=== PATIENT | male | born 1995 | race Asian ===

== ENCOUNTER 2022-10-04 18:50 | Emergency (ER) | payer OTHER, SELFPAY ==
--- NOTE | ~2022-10-04 | XR_ITS ---
EXAMINATION: XR CHEST CLINICAL INFORMATION: Chest pain COMPARISON: None available. TECHNIQUE: Frontal view of the chest was obtained. FINDINGS: No significant abnormality is noted involving the heart, lungs, mediastinum, bony thorax or soft tissues. XR/XR chest 1V IMPRESSION: Unremarkable chest examination.
--- NOTE | 2022-10-04 18:59 | ECG_ITS ---
Test Reason : CHEST PAIN Blood Pressure : / mmHG Vent. Rate : 065 BPM Atrial Rate : 065 BPM P-R Int : 136 ms QRS Dur : 092 ms QT Int : 370 ms P-R-T Axes : 020 051 036 degrees QTc Int : 384 ms Normal sinus rhythm Normal ECG No previous ECGs available Referred By: Nitesh Zamora Electronically Signed By:Darwin Canales
[2022-10-04 19:22] LABS: MANUAL DIFF FLAG NO
[2022-10-04 19:23] LABS: Basophils Absolute Auto 0.1 X10*3/uL (0.0-0.2); Basophils Percent Auto 0.8 % (0-2); Eosinophils Percent Auto 0.5 % (0-4); Hematocrit 48.3 % (42.0-52.0); Hemoglobin 16.6 g/dl (14.0-18.0); Imm Gran Abs Auto 0.03 X10*3/uL (0.00-0.03); Imm Gran Pct Auto 0.4 % (0.0-0.4); Lymphocytes Absolute Auto 1.8 X10*3/uL (1.2-4.9); Lymphocytes Percent Auto 24.7 % (20-40); Mean Corpuscular HGB Conc 34.4 g/dl (31.0-36.0); Mean Corpuscular Hemoglobin 27.5 pg (27.0-33.0); Mean Corpuscular Volume 80.1 fL (80.0-98.0); Mean Platelet Volume 8.9 fL (9.4-12.4); Monocytes Absolute Auto 0.5 X10*3/uL (0.1-1.2); Monocytes Percent Auto 6.4 % (2-11); Neutrophils Absolute Auto 4.9 x10*3/uL (2.0-8.3); Neutrophils Percent Auto 67.2 % (45-73); Platelet Count 282 X10*3/uL (160-400); Red Blood Count 6.03 X10*6/uL (4.60-5.80); Red Cell Distribution Width 11.9 % (11.0-16.0); White Blood Count 7.3 X10*3/uL (4.8-10.8)
[2022-10-04 19:34] VITALS: BP 153/91; PULSE 81; RESP 18; TEMP 36.9; O2SAT 99; BMI 22.4
--- NOTE | 2022-10-04 19:35 | ED_ITS ---
HPI - General Adult General Chief complaint: Chest Pain <REESE [place] - Last Filed: 10/04/22 19:38> Stated complaint: Chest Pain sent by [facility] <REESE [place] - Last Filed: 10/04/22 19:38> Time Seen by Provider: 10/04/22 23:16 <REESE [place] - Last Filed: 10/04/22 19:38> Source: patient, RN notes reviewed and old records reviewed <Dale Marcelo - Last Filed: 10/04/22 23:36> Mode of arrival: ambulatory <Dale Marcelo - Last Filed: 10/04/22 23:36> Limitations: no limitations <Dale Marcelo - Last Filed: 10/04/22 23:36> History of Present Illness HPI narrative: 27-year-old male who denies any past medical history presents for evaluation of multiple complaints. He complains of chest pain, worse with inspiration and raising his left arm. He reports he has headache when he sneezes He denies any fevers but endorses chills He denies any abdominal pain but states that after he eats he feels nauseous for a few seconds before it goes away He has not had any vomiting The patient denies any sick contacts or recent travel. He went to urgent care prior to arrival and was referred to the ED for further evaluation and management He reports his symptoms started 4 days ago The patient endorses increased stress related to work over the last few days <Dale Marcelo - Last Filed: 10/04/22 23:36> Related Data Allergies/adverse reactions: Allergies Allergy/AdvReac Type Severity Reaction Status Date / Time No Known Allergies Allergy Verified 10/04/22 19:38 <REESE [place] - Last Filed: 10/04/22 19:38> Review of Systems Constitutional: Constitutional: Reports as per HPI, Reports body ache(s), Reports chills, Denies fever(s), Reports headache(s) and Reports malaise <Dale Marcelo - Last Filed: 10/04/22 23:36> Eyes: Eyes: Denies blurry vision <Dale Marcelo - Last Filed: 10/04/22 23:36> ENT: Reports headache(s) <Dale Najera Last Filed: 10/04/22 23:36> Cardiovascular: Cardiovascular: Reports chest pain and Denies dyspnea <Dale Last Filed: 10/04/22 23:36> Respiratory: Respiratory: Denies cough, Reports pain on inspiration and Denies dyspnea < - Last Filed: 10/04/22 23:36> Gastrointestinal: Gastrointestinal: Denies abdominal pain, Denies constipation, Reports nausea and Denies vomiting < Last Filed: 10/04/22 23:36> Genitourinary: Genitourinary: Denies difficulty urinating and Denies dysuria < Last Filed: 10/04/22 23:36> Neurologic: Reports headache(s) and Denies focal weakness < Last Filed: 10/04/22 23:36> Physical Exam ED Vital Signs: Vital Signs - 24 hr 10/04/22 19:34 Temperature 98.5 F Pulse Rate 81 Respiratory Rate 18 Blood Pressure 153/91 H Pulse Oximetry 99 Oxygen Delivery Method Room Air BMI result Body Mass Index 22.4 <REESE [place] - Last Filed: 10/04/22 19:38> Vital Signs - 24 hr 10/04/22 19:34 Temperature 98.5 F Pulse Rate 81 Respiratory Rate 18 Blood Pressure 153/91 H Pulse Oximetry 99 Oxygen Delivery Method Room Air BMI result Body Mass Index 22.4 <Dale Last Filed: 10/04/22 23:36> Const General: healthy appearing, comfortable, no acute distress, alert and awake <Dale NajeraSummit - Last Filed: 10/04/22 23:36> Nutritional Appearance: well nourished <Dale Last Filed: 10/04/22 23:36> Orientation/consciousness: patient oriented x3 <Dale O Last Filed: 10/04/22 23:36> HENMT Head: Yes normocephalic and Yes atraumatic <Dale OSummit - Last Filed: 10/04/22 23:36> Throat: Yes posterior oropharynx normal < Last Filed: 10/04/22 23:36> Eyes Eyelids: Yes eyelids normal < Last Filed: 10/04/22 23:36> Conjunctivae: conjunctivae normal < Last Filed: 10/04/22 23:36> Sclerae: sclerae normal < Last Filed: 10/04/22 23:36> Corneas: corneas normal < Last Filed: 10/04/22 23:36> Pupils: Equal, round and reactive pupils present < Last Filed: 10/04/22 23:36> EOM: EOMs intact bilaterally < Last Filed: 10/04/22 23:36> Neck Neck: Yes full ROM < Last Filed: 10/04/22 23:36> Resp Effort & Inspection: normal respiratory effort, able to speak in complete sentences, no audible wheezes and not labored < Last Filed: 10/04/22 23:36> Auscultation: clear to auscultation bilaterally < Last Filed: 10/04/22 23:36> Cardio Rate: regular rate < Last Filed: 10/04/22 23:36> Rhythm: regular rhythm < Last Filed: 10/04/22 23:36> GI Inspection: No distended < Last Filed: 10/04/22 23:36> Palpation (GI): Soft to palpation, not firm, nontender, no guarding and not rigid < Last Filed: 10/04/22 23:36> Auscultation: normoactive bowel sounds < Last Filed: 10/04/22 23:36> Skin General skin exam: no rashes or lesions noted and elasticity normal < Last Filed: 10/04/22 23:36> Neuro General: patient oriented x3 < Last Filed: 10/04/22 23:36> Cranial nerves: Yes CN's II-XII intact bilaterally, Yes Equal, round and reactive pupils present and Yes Bilaterally intact EOM present <Dale Davian - Last Filed: 10/04/22 23:36> Cognition (Neuro): normal cognition <Dale Marcelo - Last Filed: 10/04/22 23:36> Extrem Other: Moving all extremities well without any obvious deformities <Dale Marcelo - Last Filed: 10/04/22 23:36> Course Course Course Narrative: This is an RME: Additional HPI, ROS, PE not included below will be deferred to primary provider. 27 year old male presents to the ED from urgent care with nausea and chest pain. Patient reports he had high blood pressure at home yesterday. Denies lightheadedness, fever, chill, weight loss. PE: hypertensive Plan: labs, EKG <REESE [place] - Last Filed: 10/04/22 19:38> Medical Decision Making Medical Decision Making [facility] Narrative: Patient has multiple complaints. Symptoms started 4 days ago and correlates to when he endorses increased stress. He had negative cardiac workup that included labs, troponin, EKG, chest x-ray. He was mildly hypertensive to 153/91. Does not take any antihypertensive medication. He states he has never had blood pressure before. This could be an additional symptom likely related to his increased stress. He has ruled out for ACS he also had negative D-dimer so does not have a PE. Heart score 0 <Dale Marcelo - Last Filed: 10/04/22 23:36> Differential Diagnosis Chest pain ACS Bronchitis PE Anxiety Stress <Dale Marcelo - Last Filed: 10/04/22 23:36> Lab Data [facility] Lab Attestation statement: I reviewed the patient's lab results. <Dale Marcelo - Last Filed: 10/04/22 23:36> Result Diagrams: 10/04/22 19:17 10/04/22 19:17 <REESE [place] - Last Filed: 10/04/22 19:38> Labs: Lab Results 10/04/22 10/04/22 10/04/22 Range/Units 19:17 19:17 19:17 WBC 7.3 (4.8-10.8) X10*3/uL RBC 6.03 H (4.60-5.80) X10*6/uL Hgb 16.6 (14.0-18.0) g/dl Hct 48.3 (42.0-52.0) % MCV 80.1 (80.0-98.0) fL MCH 27.5 (27.0-33.0) pg MCHC 34.4 (31.0-36.0) g/dl RDW 11.9 (11.0-16.0) % Plt Count 282 (160-400) X10*3/uL MPV 8.9 L (9.4-12.4) fL Immature Gran % (Auto) 0.4 (0.0-0.4) % Neut % (Auto) 67.2 (45-73) % Lymph % (Auto) 24.7 (20-40) % Cascade % (Auto) 6.4 (2-11) % Eos % (Auto) 0.5 (0-4) % Baso % (Auto) 0.8 (0-2) % Lymph # (Auto) 1.8 (1.2-4.9) X10*3/uL Cascade # (Auto) 0.5 (0.1-1.2) X10*3/uL Eos # (Auto) 0.0 (0.0-0.4) X10*3/uL Baso # (Auto) 0.1 (0.0-0.2) X10*3/uL Abs Immat Gran (auto) 0.03 (0.00-0.03) X10*3/uL Absolute Neuts (auto) 4.9 (2.0-8.3) x10*3/uL Absolute Nucleated RBC 0.000 (0.0-0.012) X10*3/uL Nucleated RBC % (auto) 0.0 (0.0-0.2) /100WBC D-Dimer High Sensitivty < 150 NG/ML Sodium 142 (135-145) mmol/L Potassium 4.3 (3.3-5.1) mmol/L Chloride 104 (96-108) mmol/L Carbon Dioxide 27 (22-29) mmol/L Anion Gap 15 (12-20) BUN 14 (9-16) mg/dL Creatinine 0.87 (0.5-1.4) mg/dL Estim Creat Clear Calc 107.7 Estimated GFR > 60 Random Glucose 86 (60-115) mg/dL Calcium 9.7 (8.4-10.2) mg/dL Magnesium 2.1 (1.6-2.6) mg/dL Total Bilirubin 0.6 (0.0-1.0) mg/dL AST 28 (5-37) U/L ALT 50 H (0-40) U/L Alkaline Phosphatase 90 (39-117) U/L Troponin I High Sens (<3.5-35.0) ng/L Total Protein 7.7 (6.5-8.0) g/dL Albumin 5.0 (3.5-5.0) g/dL Ethyl Alcohol < 10 mg/dL COVID-19 (FERNANDA) (Negative) COVID-19 Clin Com 10/04/22 10/04/22 Range/Units 19:17 19:17 WBC (4.8-10.8) X10*3/uL RBC (4.60-5.80) X10*6/uL Hgb (14.0-18.0) g/dl Hct (42.0-52.0) % MCV (80.0-98.0) fL MCH (27.0-33.0) pg MCHC (31.0-36.0) g/dl RDW (11.0-16.0) % Plt Count (160-400) X10*3/uL MPV (9.4-12.4) fL Immature Gran % (Auto) (0.0-0.4) % Neut % (Auto) (45-73) % Lymph % (Auto) (20-40) % Cascade % (Auto) (2-11) % Eos % (Auto) (0-4) % Baso % (Auto) (0-2) % Lymph # (Auto) (1.2-4.9) X10*3/uL Cascade # (Auto) (0.1-1.2) X10*3/uL Eos # (Auto) (0.0-0.4) X10*3/uL Baso # (Auto) (0.0-0.2) X10*3/uL Abs Immat Gran (auto) (0.00-0.03) X10*3/uL Absolute Neuts (auto) (2.0-8.3) x10*3/uL Absolute Nucleated RBC (0.0-0.012) X10*3/uL Nucleated RBC % (auto) (0.0-0.2) /100WBC D-Dimer High Sensitivty NG/ML Sodium (135-145) mmol/L Potassium (3.3-5.1) mmol/L Chloride (96-108) mmol/L Carbon Dioxide (22-29) mmol/L Anion Gap (12-20) BUN (9-16) mg/dL Creatinine (0.5-1.4) mg/dL Estim Creat Clear Calc Estimated GFR Random Glucose (60-115) mg/dL Calcium (8.4-10.2) mg/dL Magnesium (1.6-2.6) mg/dL Total Bilirubin (0.0-1.0) mg/dL AST (5-37) U/L ALT (0-40) U/L Alkaline Phosphatase (39-117) U/L Troponin I High Sens < 2.7 (<3.5-35.0) ng/L Total Protein (6.5-8.0) g/dL Albumin (3.5-5.0) g/dL Ethyl Alcohol mg/dL COVID-19 (FERNANDA) Negative (Negative) COVID-19 Clin Com See Note <REESE [place] - Last Filed: 10/04/22 19:38> Lab Results 10/04/22 10/04/22 10/04/22 Range/Units 19:17 19:17 19:17 WBC 7.3 (4.8-10.8) X10*3/uL RBC 6.03 H (4.60-5.80) X10*6/uL Hgb 16.6 (14.0-18.0) g/dl Hct 48.3 (42.0-52.0) % MCV 80.1 (80.0-98.0) fL MCH 27.5 (27.0-33.0) pg MCHC 34.4 (31.0-36.0) g/dl RDW 11.9 (11.0-16.0) % Plt Count 282 (160-400) X10*3/uL MPV 8.9 L (9.4-12.4) fL Immature Gran % (Auto) 0.4 (0.0-0.4) % Neut % (Auto) 67.2 (45-73) % Lymph % (Auto) 24.7 (20-40) % Cascade % (Auto) 6.4 (2-11) % Eos % (Auto) 0.5 (0-4) % Baso % (Auto) 0.8 (0-2) % Lymph # (Auto) 1.8 (1.2-4.9) X10*3/uL Cascade # (Auto) 0.5 (0.1-1.2) X10*3/uL Eos # (Auto) 0.0 (0.0-0.4) X10*3/uL Baso # (Auto) 0.1 (0.0-0.2) X10*3/uL Abs Immat Gran (auto) 0.03 (0.00-0.03) X10*3/uL Absolute Neuts (auto) 4.9 (2.0-8.3) x10*3/uL Absolute Nucleated RBC 0.000 (0.0-0.012) X10*3/uL Nucleated RBC % (auto) 0.0 (0.0-0.2) /100WBC D-Dimer High Sensitivty < 150 NG/ML Sodium 142 (135-145) mmol/L Potassium 4.3 (3.3-5.1) mmol/L Chloride 104 (96-108) mmol/L Carbon Dioxide 27 (22-29) mmol/L Anion Gap 15 (12-20) BUN 14 (9-16) mg/dL Creatinine 0.87 (0.5-1.4) mg/dL Estim Creat Clear Calc 107.7 Estimated GFR > 60 Random Glucose 86 (60-115) mg/dL Calcium 9.7 (8.4-10.2) mg/dL Magnesium 2.1 (1.6-2.6) mg/dL Total Bilirubin 0.6 (0.0-1.0) mg/dL AST 28 (5-37) U/L ALT 50 H (0-40) U/L Alkaline Phosphatase 90 (39-117) U/L Troponin I High Sens (<3.5-35.0) ng/L Total Protein 7.7 (6.5-8.0) g/dL Albumin 5.0 (3.5-5.0) g/dL Ethyl Alcohol < 10 mg/dL COVID-19 (FERNANDA) (Negative) COVID-19 Clin Com 10/04/22 10/04/22 Range/Units 19:17 19:17 WBC (4.8-10.8) X10*3/uL RBC (4.60-5.80) X10*6/uL Hgb (14.0-18.0) g/dl Hct (42.0-52.0) % MCV (80.0-98.0) fL MCH (27.0-33.0) pg MCHC (31.0-36.0) g/dl RDW (11.0-16.0) % Plt Count (160-400) X10*3/uL MPV (9.4-12.4) fL Immature Gran % (Auto) (0.0-0.4) % Neut % (Auto) (45-73) % Lymph % (Auto) (20-40) % Cascade % (Auto) (2-11) % Eos % (Auto) (0-4) % Baso % (Auto) (0-2) % Lymph # (Auto) (1.2-4.9) X10*3/uL Cascade # (Auto) (0.1-1.2) X10*3/uL Eos # (Auto) (0.0-0.4) X10*3/uL Baso # (Auto) (0.0-0.2) X10*3/uL Abs Immat Gran (auto) (0.00-0.03) X10*3/uL Absolute Neuts (auto) (2.0-8.3) x10*3/uL Absolute Nucleated RBC (0.0-0.012) X10*3/uL Nucleated RBC % (auto) (0.0-0.2) /100WBC D-Dimer High Sensitivty NG/ML Sodium (135-145) mmol/L Potassium (3.3-5.1) mmol/L Chloride (96-108) mmol/L Carbon Dioxide (22-29) mmol/L Anion Gap (12-20) BUN (9-16) mg/dL Creatinine (0.5-1.4) mg/dL Estim Creat Clear Calc Estimated GFR Random Glucose (60-115) mg/dL Calcium (8.4-10.2) mg/dL Magnesium (1.6-2.6) mg/dL Total Bilirubin (0.0-1.0) mg/dL AST (5-37) U/L ALT (0-40) U/L Alkaline Phosphatase (39-117) U/L Troponin I High Sens < 2.7 (<3.5-35.0) ng/L Total Protein (6.5-8.0) g/dL Albumin (3.5-5.0) g/dL Ethyl Alcohol mg/dL COVID-19 (FERNANDA) Negative (Negative) COVID-19 Clin Com See Note <Dale Marcelo - Last Filed: 10/04/22 23:36> Independent Interpretation I performed an independent interpretation of an: EKG (Sinus rhythm rate of 65 beats per minute. No ectopy or ischemic changes) and Plain X-Ray (No focal infiltrates) <Dale Marcelo - Last Filed: 10/04/22 23:36> Discharge Plan Discharge Clinical Impression: Chest pain <REESE [place] - Last Filed: 10/04/22 19:38> Patient Disposition: Home, Self-Care <REESE [place] - Last Filed: 10/04/22 19:38> Instructions: Chest Pain (ED) <REESE [place] - Last Filed: 10/04/22 19:38> Additional Instructions: You were seen today for chest pain. Your blood work, EKG, chest x-ray were reassuring. He also tested negative for COVID-19. Your symptoms may be related to increased stress Your blood pressure was slightly elevated today to 153/91. Follow this up with her primary doctor You may take Tylenol 500 mg every 4-6 hours as needed for pain <REESE [place] - Last Filed: 10/04/22 19:38>
[2022-10-04 19:36] LABS: COVID-19 Test Negative (Negative); IDNOW Serial# BCCEAD1C
[2022-10-04 19:51] LABS: Alanine Aminotransferase 50 U/L (0-40); Alkaline Phosphatase 90 U/L (39-117); Anion Gap 15 (12-20); Aspartate Amino Transferase 28 U/L (5-37); Bilirubin Total 0.6 mg/dL (0.0-1.0); Blood Urea Nitrogen 14 mg/dL (9-16); Calcium 9.7 mg/dL (8.4-10.2); Carbon Dioxide 27 mmol/L (22-29); Chloride 104 mmol/L (96-108); Creatinine Clr Calc Pharmacy 107.7; Estimated Glomerular Filt Rate > 60; Ethanol < 10 mg/dL; Glucose Random 86 mg/dL (60-115); Magnesium 2.1 mg/dL (1.6-2.6); Potassium 4.3 mmol/L (3.3-5.1); Sodium 142 mmol/L (135-145); Total Protein 7.7 g/dL (6.5-8.0); Troponin-I High Sensitivity < 2.7 ng/L (<3.5-35.0)
[2022-10-04 20:21] LABS: D Dimer High Sensitivity < 150 NG/ML
[2022-10-04 23:59] LABS: Appearance Urine Clear; Color Urine Yellow; Glucose Urine UA Negative (Negative); Leukocyte Esterase Urine Negative (Negative); Nitrite Urine Negative (Negative); Specific Gravity - Urine 1.015 (1.005-1.025); Urine Blood Negative (Negative); Urine Ketones Negative (Negative); Urine Protein Negative (Neg-Trace)
[2022-10-05 00:10] LABS: Amphetamine Screen Urine Not Detected (Not Detect); Barbiturates, Urine Not Detected (Not Detect); Benzodiazepines Screen Urine Not Detected (Not Detect); Cannabinoid Screen Urine Not Detected (Not Detect); Cocaine Screen Urine Not Detected (Not Detect); Fentanyl, urine Not Detected (Not Detect); Opiate Screen Urine Not Detected (Not Detect); Phencyclidine Screen Urine Not Detected (Not Detect)
== END 2022-10-04 23:43 | disposition home or self-care (01) ==
LOC: HO.ED 23:43
PROVIDERS: Physician Assistant; Emergency Provider Emergency Medicine
DX: R07.9 Chest pain, unspecified (principal); I10 Essential (primary) hypertension; Z20.822 Contact with and (suspected) exposure to COVID-19; Z72.89 Other problems related to lifestyle; Z56.6 Other physical and mental strain related to work
CPT/HCPCS: 71045; 80053; 80307; 81003; 82077; 83735; 84484; 85025; 85379; 87635; 93005; 99283